=== PATIENT | male | born 1940 | race Two or more races ===

== ENCOUNTER 2017-12-22 09:41 | Outpatient (CLI) | payer OTHER ==
[~2017-12-22 09:41] MED LIST: LEVOTHYROXINE SO1 GM
== END 2017-12-22 09:52 | disposition home or self-care (01) ==
LOC: NUCLEAR 09:41
DX: M85.89 Other specified disorders of bone density and structure, multiple sites (principal)

== ENCOUNTER 2020-04-28 18:11 | Inpatient (IN) | payer OTHER ==
[~2020-04-28] VITALS: Ht 167.6 cm; Wt 54.4 kg
[2020-04-28] MEDS ORDERED: VITAMINA B-12 (18:34)
[2020-04-28] MEDS ORDERED: HIERRO (18:35)
[2020-04-28] MEDS ORDERED: VITAMINA C (18:35)
[2020-04-28] MEDS ORDERED: VITAMINA D (18:36)
[2020-04-29] MEDS ORDERED: FERROUS SULFAT325 MG ×2 (11:14→11:17)
[2020-04-29] MEDS ORDERED: IRON236 MG (11:14)
[2020-04-29] MEDS ORDERED: VITAMIN D310 MC5 (11:14)
[2020-04-29] MEDS ORDERED: VITAMIN B-121000 MC4 (11:15)
[2020-04-29] MEDS ORDERED: VITAMIN C100 MG (11:16)
[2020-04-29] MEDS ORDERED: LEVOTHYROXINE112 MCG (11:17)
[2020-05-03] MEDS ORDERED: PROTONIX40 MG PO (09:40)
[2020-05-03] MEDS ORDERED: INTEGRA PLUS C1 EACH PO (09:42)
== END 2020-05-03 10:33 | disposition home or self-care (01) | DRG 812 ==
LOC: EDBD 18:11 → ER 18:11 → MEDJ 21:02
PROVIDERS: ADMIT Internal Medicine; ATTEND Internal Medicine
PROC: 30233N1 Transfusion of Nonautologous Red Blood Cells into Peripheral Vein, Percutaneous Approach (ICD-10-PCS; principal; 2020-04-29)
PROC: 0DB98ZX Excision of Duodenum, Via Natural or Artificial Opening Endoscopic, Diagnostic (ICD-10-PCS; 2020-05-02)
PROC: 0DB68ZX Excision of Stomach, Via Natural or Artificial Opening Endoscopic, Diagnostic (ICD-10-PCS; 2020-05-02)
DX: D64.9 Anemia, unspecified (principal); K25.9 Gastric ulcer, unspecified as acute or chronic, without hemorrhage or perforation; E03.9 Hypothyroidism, unspecified

== ENCOUNTER 2023-05-03 12:11 | Emergency (ER) | payer OTHER ==
[~2023-05-03] VITALS: Ht 167.6 cm; Wt 64.4 kg
[~2023-05-03 12:11] MED LIST changes: +FERROUS SULFAT325 MG; +HIERRO; +INTEGRA PLUS C1 EACH PO; +IRON236 MG; +LEVOTHYROXINE112 MCG; +PROTONIX40 MG PO; +VITAMIN B-121000 MC4; +VITAMIN C100 MG; +VITAMIN D310 MC5; +VITAMINA B-12; +VITAMINA C; +VITAMINA D
[2023-05-03] MEDS ORDERED: cloNIDine HCL 0.2 MG TABLET PO ONE (12:45)
[2023-05-03] MEDS ORDERED: FUROsemide 20 MG/2 ML VIAL IV ONE (13:00)
[2023-05-03 13:59] LABS: HEMOGLOBIN 13.9 g/dL (13-16.00); MEAN CELL VOLUME 89.9 fL (80.0-100.00); MEAN CORPUSCULAR HEMOGLOBIN 30.5 pg (27.00-32.0); MEAN CORPUSCULAR HGB CONC 33.9 g/dl (32.0-36.0); PLATELET COUNT 160 K/uL (150-450); RED BLOOD COUNT 4.56 M/uL (4.00-6.00); RED CELL DISTRIBUTION WIDTH 13.7 % (11.5-14.5)
[2023-05-03 14:31] LABS: BILIRUBIN TOTAL 0.46 mg/dL (0.3-1.2); CREATININE SERUM 0.56 mg/dL (0.70-1.30); GFR 140.38; GLOBULINA 3.5 G/DL (2.4-3.5); POTASSIUM 3.79 mEq/L (3.5-5.1); TOTAL PROTEIN 7.5 gm/dL (6.4-8.2)
[2023-05-03] MEDS ORDERED: NIFEDIPINE ER30 MG PO (15:20)
== END 2023-05-03 15:39 | disposition home or self-care (01) ==
LOC: ER 12:11
PROVIDERS: General Practice
DX: I16.9 Hypertensive crisis, unspecified (principal); I10 Essential (primary) hypertension; E03.9 Hypothyroidism, unspecified
CPT/HCPCS: 36415; 93005; 96365; 99282; J1940

== ENCOUNTER 2023-12-27 09:29 | Outpatient (CLI) | payer OTHER ==
[~2023-12-27 09:29] MED LIST changes: +NIFEDIPINE ER30 MG PO
== END 2023-12-27 09:31 | disposition home or self-care (01) ==
LOC: NUCLEAR 09:29
PROVIDERS: ATTEND Internal Medicine Sports Medicine
DX: I65.23 Occlusion and stenosis of bilateral carotid arteries (principal); R00.2 Palpitations; E03.9 Hypothyroidism, unspecified; R00.0 Tachycardia, unspecified